=== PATIENT | male | born 1995 | race Caucasian/White ===

== ENCOUNTER 2017-04-23 04:38 | Emergency (ER) | payer OTHER ==
[~2017-04-23 04:38] MED LIST: ALBUTEROL SULFAT3 ML; PREDNISONE1 MG PO; PROAIR HFA0.09 MG/A1 INH; SING10 PO
[2017-04-23 05:40] VITALS: BP 144/97
== END 2017-04-23 05:40 | disposition home or self-care (01) ==
LOC: ED 04:38
DX: J02.9 Acute pharyngitis, unspecified (principal); J45.909 Unspecified asthma, uncomplicated

== ENCOUNTER 2017-09-12 16:25 | Emergency (ER) | payer OTHER ==
[~2017-09-12] VITALS: Ht 180.3 cm; Wt 97.5 kg
[2017-09-12 16:57] VITALS: BP 131/80
== END 2017-09-12 18:56 | disposition home or self-care (01) ==
LOC: ED 16:25
DX: B34.9 Viral infection, unspecified (principal); R03.0 Elevated blood-pressure reading, without diagnosis of hypertension
CPT/HCPCS: J1885; Q0092

== ENCOUNTER 2018-02-14 00:01 | Emergency (ER) | payer SELFPAY ==
[~2018-02-14] VITALS: Ht 180.3 cm; Wt 105.2 kg
[2018-02-14 00:41] VITALS: Ht 180.3 cm; Wt 105.2 kg
[2018-02-14 04:14] VITALS: BP 140/73
== END 2018-02-14 03:40 | disposition home or self-care (01) ==
LOC: ED 00:01
DX: R07.89 Other chest pain (principal); J45.909 Unspecified asthma, uncomplicated
CPT/HCPCS: J1885; Q0092

== ENCOUNTER 2020-05-06 22:35 | Emergency (ER) | payer SELFPAY ==
[~2020-05-06] VITALS: Ht 180.3 cm; Wt 113.5 kg
[2020-05-06 23:46] LABS: BASOPHIL % 0.5 % (0-2); CALCIUM 8.7 mg/dL (8.5-10.1); CARBON DIOXIDE 25.5 mmol/L (21-32); CHLORIDE SERUM 98 mmol/L (98-107); CREATININE SERUM 0.9 mg/dL (0.7-1.3); GFR1 > 60 mL/min; GLUCOSE SERUM 410 mg/dL (74-106); PLATELET COUNT 245 x10^3mcL (130-400); POTASSIUM SERUM 3.6 mmol/L (3.5-5.1); RED CELL DISTRIBUTION WIDTH 13.3 % (11.5-14.5); SODIUM SERUM 135 mmol/L (136-145)
[2020-05-06 23:53] LABS: ALBUMIN 4.1 g/dL (3.4-5.0); ALKALINE PHOSPHATASE 103 U/L (46-116); ALT/SGPT 407 U/L (16-63); AST/SGOT 177 U/L (15-37); BILIRUBIN TOTAL 0.4 mg/dL (0.20-1.00); LIPASE 146 IU/L (73-393); TOTAL PROTEIN, SERUM 7.9 g/dL (6.4-8.2)
[2020-05-06 23:56] LABS: CHOLESTEROL 244 mg/dL (<200); CHOLESTEROL/HDL RATIO 7.6; HDL CHOLESTEROL 32 mg/dL (40-60); TRIGLYCERIDES 330 mg/dL (<150)
[2020-05-07 00:07] LABS: UA SPECIFIC GRAVITY 1.015 (1.005-1.035); microscopic required? YES; urine erythrocyte TRACE (NEGATIVE)
[2020-05-07 00:20] LABS: AMPHETAMINE QUAL UR NONE DETECTED (See below)
[2020-05-07 00:58] VITALS: BP 127/71
== END 2020-05-07 00:58 | disposition home or self-care (01) ==
LOC: ED 22:35
PROVIDERS: Specialist
DX: E11.9 Type 2 diabetes mellitus without complications (principal); J45.909 Unspecified asthma, uncomplicated
CPT/HCPCS: 36600; 82962; J7030